=== PATIENT | male | born 1990 | race Caucasian/White ===

== ENCOUNTER 2016-11-25 11:33 | Emergency (ER) | payer OTHER ==
[~2016-11-25] VITALS: Ht 172.7 cm; Wt 75.7 kg
[2016-11-25] MEDS ORDERED: IBUPROFEN 600 MG (11:44)
--- NOTE | 2016-11-25 11:56 | NUR ---
DR LONG AT THE BEDSIDE FOR EVAL AND EXAM.
[2016-11-25] MEDS ORDERED: IV NORMAL SALINE 1000 ML BAG IV ONE (12:00)
[2016-11-25] MEDS ORDERED: KETOROLAC TROMETHAMINE 30 MG INJ IVP ONE (12:00)
[2016-11-25] MEDS ORDERED: KETOROLAC TROMETHAMINE 30 MG INJ ONE (12:13)
[2016-11-25 12:19] LABS: BASOPHILS % (AUTO) 0.2 % (0.0-2.0); EOSINOPHILS # (AUTO) 0.1 K/uL (0.0-0.7); EOSINOPHILS % (AUTO) 0.9 % (0.0-7.0); HEMATOCRIT 39.6 % (40-50); HEMOGLOBIN 12.4 G/DL (14.0-18.0); LYMPHOCYTES # (AUTO) 1.1 K/UL (0.8-4.8); LYMPHOCYTES % (AUTO) 7.3 % (20.5-51.5); MEAN CORPUSCULAR HEMOGLOBIN 26.8 UUG (27.0-31.0); MEAN CORPUSCULAR HGB CONC 31 g/dL (32.0-37.0); MEAN CORPUSCULAR VOLUME 85.4 FL (82.0-92.0); MONOCYTES # (AUTO) 0.1 K/UL (0.1-1.30); MONOCYTES % (AUTO) 0.5 % (0.0-11.0); NEUTROPHILS # (AUTO) 13.3 K/UL (1.8-8.9); NEUTROPHILS % (AUTO) 91.1 % (38.5-71.5); PLATELET COUNT (AUTO) 243 K/UL (150-450); RED BLOOD CELL COUNT(AUTO) 4.64 MIL/UL (4.7-6.1); RED CELL DISTRIBUTION WIDTH 18.8 % (11.5-14.5); WHITE BLOOD COUNT (AUTO) 14.6 K/UL (4.0-11.2)
--- NOTE | 2016-11-25 12:21 | NUR ---
PT STATES PAIN IS WORSE AND TORADOL IS NOT HELPING.
[2016-11-25 12:23] LABS: CALCIUM 8.7 mg/dL (8.5-10.1); CREATININE 0.8 mg/dL (0.6-1.3); POTASSIUM 4.3 mmol/L (3.5-5.1)
[2016-11-25 12:29] LABS: ALBUMIN 4.3 g/dL (3.4-5.0); BILIRUBIN,DIRECT 0.5 mg/dL (0.0-0.2); BILIRUBIN,TOTAL 4.5 mg/dL (0.2-1.0); TOTAL PROTEIN, SERUM 8.1 g/dL (6.4-8.2)
[2016-11-25 12:42] LABS: ANISOCYTOSIS 2+; HYPOCHROMASIA 1+
[2016-11-25 12:43] LABS: OVALOCYTES 1+; TEAR DROP CELLS 1+
[2016-11-25] MEDS ORDERED: ONDANSETRON 4 MG/2 ML VIAL IV ONE (12:45)
[2016-11-25] MEDS ORDERED: MORPHINE SULFATE 4 MG/1 ML DISP.SYRIN ONE (12:45)
[2016-11-25] MEDS ORDERED: MORPHINE SULFATE 4 MG/1 ML DISP.SYRIN IV ONE (12:45)
[2016-11-25] MEDS ORDERED: ONDANSETRON 4 MG/2 ML VIAL ONE (12:45)
--- NOTE | 2016-11-25 12:50 | NUR ---
Patient is resting comfortably in bed with eyes closed, NAD noted.
--- NOTE | 2016-11-25 15:30 | NUR ---
IV removed. Catheter intact and site benign. Pressure and 4x4 gauze applied to site. No bleeding noted.
--- NOTE | 2016-11-25 15:34 | NUR ---
Patient discharged to home in stable conditon. Written and verbal after care instructions given. Patient verbalizes understanding of instructions.
[2016-11-25 15:35] VITALS: BP 112/70
== END 2016-11-25 15:55 | disposition home or self-care (01) ==
LOC: ER 11:33
DX: M79.652 Pain in left thigh (principal); G89.29 Other chronic pain
CPT/HCPCS: 36415; 85025; A4663; J1885; J2270; J2405; J7030

== ENCOUNTER 2016-11-25 21:32 | Inpatient (IN) | payer OTHER ==
[~2016-11-25] VITALS: Ht 172.7 cm; Wt 73.5 kg
[~2016-11-25 21:32] MED LIST: IBUPROFEN 600 MG
--- NOTE | 2016-11-25 21:40 | NUR ---
PATIENT WAS SEEN HERE EARLIER IN THE ER FOR SIMILAR COMPLAINT, PT WALKED IN C/O LOWER EXT PAIN. CAME BACK FOR LEFT LEG PAIN FROM SICKLE CELL... PT IS ALERT, ORIENTED X 4, NO RESP DISTRESS NOTED OR REPORTED UPON ASSESSMENT... MD AT BEDSIDE..
[2016-11-25] MEDS ORDERED: HYDROMORPHONE 1 MG/1 ML DISP.SYRIN IV ONE (22:15)
[2016-11-25] MEDS ORDERED: IV NORMAL SALINE 1000 ML BAG IV ONE (22:15)
[2016-11-25] MEDS ORDERED: ONDANSETRON 4 MG/2 ML VIAL IV ONE (22:15)
[2016-11-25 22:40] LABS: EOSINOPHILS # (AUTO) 0.1 K/uL (0.0-0.7); EOSINOPHILS % (AUTO) 0.6 % (0.0-7.0); HEMATOCRIT 37.8 % (40-50); HEMOGLOBIN 11.9 G/DL (14.0-18.0); LYMPHOCYTES # (AUTO) 0.5 K/UL (0.8-4.8); LYMPHOCYTES % (AUTO) 4.1 % (20.5-51.5); MEAN CORPUSCULAR HEMOGLOBIN 26.9 UUG (27.0-31.0); MEAN CORPUSCULAR HGB CONC 32 g/dL (32.0-37.0); MEAN CORPUSCULAR VOLUME 85.2 FL (82.0-92.0); MONOCYTES % (AUTO) 0.3 % (0.0-11.0); NEUTROPHILS # (AUTO) 12.5 K/UL (1.8-8.9); PLATELET COUNT (AUTO) 224 K/UL (150-450); RED BLOOD CELL COUNT(AUTO) 4.44 MIL/UL (4.7-6.1); RED CELL DISTRIBUTION WIDTH 19.2 % (11.5-14.5); WHITE BLOOD COUNT (AUTO) 13.1 K/UL (4.0-11.2)
[2016-11-25 22:44] LABS: CALCIUM 8.4 mg/dL (8.5-10.1); CREATININE 0.9 mg/dL (0.6-1.3); POTASSIUM 4.2 mmol/L (3.5-5.1)
[2016-11-25 22:49] LABS: ALBUMIN 3.9 g/dL (3.4-5.0); BILIRUBIN,DIRECT 0.5 mg/dL (0.0-0.2); BILIRUBIN,TOTAL 3.6 mg/dL (0.2-1.0); TOTAL PROTEIN, SERUM 7.5 g/dL (6.4-8.2)
[2016-11-25] MEDS ORDERED: MORPHINE SULFATE 4 MG/1 ML DISP.SYRIN IV ONE (23:00)
[2016-11-25 23:04] LABS: ANISOCYTOSIS 2+; BAND % (MANUAL) 1 % (0-10); LYMPHOCYTES % (MANUAL) 17 % (20-40); MONOCYTES % (MANUAL) 11 % (2-10); NEUTROPHILS % (MANUAL) 71 % (42-75); PLATELET ESTIMATE ADEQUATE
[2016-11-25 23:05] LABS: OVALOCYTES FEW; TARGET CELLS 1+
[2016-11-25] MEDS ORDERED: ONDANSETRON 4 MG/2 ML VIAL ONE (23:05)
[2016-11-25] MEDS ORDERED: MORPHINE SULFATE 10 MG/1 ML DISP.SYRIN ONE (23:05)
[2016-11-26] MEDS ORDERED: IV NORMAL SALINE 1000 ML BAG IV ONE ×2 (00:30→03:15)
[2016-11-26] MEDS ORDERED: MORPHINE SULFATE 4 MG/1 ML DISP.SYRIN IV ONE (00:30)
[2016-11-26] MEDS ORDERED: MORPHINE SULFATE 10 MG/1 ML DISP.SYRIN ONE (00:48)
--- NOTE | 2016-11-26 02:18 | NUR ---
epic contacted per ERMD, per trim machine operator to darnell Hooper....
[2016-11-26] MEDS ORDERED: IV NS 1000 ML 1,000 ML IV PRN (03:14)
[2016-11-26] MEDS ORDERED: ONDANSETRON 4 MG/2 ML VIAL IV PRN (03:15)
[2016-11-26] MEDS ORDERED: HYDROMORPHONE 1 MG/1 ML DISP.SYRIN IV PRN (03:15)
[2016-11-26] MEDS ORDERED: FOLIC ACID 1 MG in IV DEXTROSE 5% 50 ML IV SCH (03:15)
[2016-11-26] MEDS ORDERED: HYDROCODONE/APAP 5-325MG TABLET PO PRN (03:15)
[2016-11-26] MEDS ORDERED: ACETAMINOPHEN 325 MG TABLET PO PRN (03:15)
[2016-11-26] MEDS ORDERED: MAGNESIUM HYDROXIDE 30 ML LIQUID UDC PO PRN (03:15)
[2016-11-26] MEDS ORDERED: Z GUARD REMEDY PASTE 57 GM TUBE TOP PRN (03:15)
--- NOTE | 2016-11-26 03:50 | NUR ---
Pt. admitted to Med Surg , under care of Dr. Hooper, Belongs List completed, pt alert, oriented x 4, no resp distress noted or reported upon transfer assessment... pt transferred via gurney with at side..
[2016-11-26 03:57] VITALS: BP 98/53
[2016-11-26 04:00] VITALS: BP 98/53
--- NOTE | 2016-11-26 04:00 | NUR ---
Admitted patient from ER via [place], accompanied by which serves as basting puller. Pt AAOx4, speaks Khmer only. Routine admission care done. Plan of care initiated.
--- NOTE | 2016-11-26 04:18 | NUR ---
Folic acid IV was not given as ordered at this time. Medication is not available per Charge nurse and we'll wait till Pharmacy opens. Will endorse to oncoming nurse.
--- NOTE | 2016-11-26 04:25 | NUR ---
Dilaudid 1 mg IV given for complaint of left leg pain in scale of 8/10. Will monitor.
--- NOTE | 2016-11-26 04:40 | NUR ---
Contacted PMD Dr. Hooper for clarification of order and pain medication. New order obtained, noted and carried out.
[2016-11-26] MEDS: IV NS 1000 ML 1,000 ML IV PRN ×3 (05:28→22:35)
--- NOTE | 2016-11-26 05:32 | NUR ---
Ambulated to the BR with standby assist. Still complaining of pain but instructed patient that his pain meds due every 4 hours and he's due till 824.Offered [place] but refused. Pt verbalized understanding.
[2016-11-26] MEDS ORDERED: PANTOPRAZOLE SODIUM 40 MG TABLET.DR PO SCH (07:00)
--- NOTE | 2016-11-26 07:00 | NUR ---
PATIENT RECEIVED IN ROOM RESTING WITH EYES CLOSED IN NO ACUTE DISTRESS. IVF RUNNING. FAMILY AT BEDSIDE.
[2016-11-26] MEDS: MORPHINE SULFATE 2 MG/1 ML DISP.SYRIN IV PRN ×2 (08:33→12:29)
[2016-11-26 11:14] VITALS: BP 108/62
[2016-11-26] MEDS ORDERED: MORPHINE SULFATE 2 MG/1 ML DISP.SYRIN IV ONE (13:30)
--- NOTE | 2016-11-26 13:30 | NUR ---
NEW ORDERS RECEIVED FROM DR. BRUNO MS INCREASED TO 4 MG Q4HRS PRN.
[2016-11-26] MEDS ORDERED: FOLIC ACID 1 MG TABLET PO SCH (14:15)
[2016-11-26 15:27] VITALS: BP 107/66
[2016-11-26] MEDS: MORPHINE SULFATE 4 MG/1 ML DISP.SYRIN IV PRN ×2 (17:29→22:53)
--- NOTE | 2016-11-26 18:52 | NUR ---
END OF SHIFT NOTE: PATIENT IN NO ACUTE DISTRESS THROUGHOUT SHIFT. STATES PAIN MEDICATION HELPS BUT DOES NOT GET RID OF THE PAIN. WARM PACK PROVIDED PATIENT STATES IT ALSO HELPS WITH THE PAIN. VSS. PATIENT ABLE TO WALK TO BATHROOM INDEPENDENTLY. IVF RUNNING. NEEDS MET BY STAFF.
--- NOTE | 2016-11-26 19:10 | NUR ---
PATIENT IN BED ALERT, NO SOB NO CHEST PAIN ON PAIN MANAGEMENT. CONT TO MONITOR.
[2016-11-26 20:00] VITALS: BP 101/60
--- NOTE | 2016-11-27 03:40 | NUR ---
PATIENT WENT AMA, SIGNED AMA PAPERS, PATIENT AND SAID THEY ARE LEAVING, AND THE PATIENT IS GOING TO [facility]. EXPLAINED THE RISK AND BENEFIT BUT WANTS TO LEAVE. DR. BILLINGSLEY NOTIFY
== END 2016-11-27 03:40 | disposition left against medical advice (07) | DRG 812 ==
LOC: ER 21:38 → MED 11-26 03:15
PROVIDERS: ADMIT Internal Medicine; ATTEND Internal Medicine
DX: D57.00 Hb-SS disease with crisis, unspecified (principal); E87.1 Hypo-osmolality and hyponatremia; D72.829 Elevated white blood cell count, unspecified; F17.210 Nicotine dependence, cigarettes, uncomplicated; E80.6 Other disorders of bilirubin metabolism
CPT/HCPCS: 36415; 70030-TC; 85025; 85730; A4663; J2270; J2405; J7030